=== PATIENT | female | born 1990 | race Caucasian/White ===

== ENCOUNTER 2022-06-20 14:27 | Inpatient (IN) | payer MEDICAID ==
[~2022-06-20] VITALS: Ht 152.4 cm; Wt 55.5 kg
[2022-06-20 15:26] LABS: BASOPHILS % (AUTO) 0.2 % (0.0-2.0); EOSINOPHILS % (AUTO) 0.2 % (1.0-6.0); HEMATOCRIT 40.2 % (36-46); HEMOGLOBIN 13.4 g/dL (12.0-16.0); LYMPHOCYTES # (AUTO) 0.7 K/uL (1.0-4.8); LYMPHOCYTES % (AUTO) 4.5 % (22.0-44.0); MEAN CORPUSCULAR HEMOGLOBIN 30.8 pg (26.0-34.0); MEAN CORPUSCULAR HGB CONC 33.3 G/dL (31.0-37.0); MEAN CORPUSCULAR VOLUME 92 fL (80-100); MONOCYTES # (AUTO) 0.7 K/uL (0.1-1.0); MONOCYTES % (AUTO) 4.1 % (2.0-9.0); NEUTROPHILS # (AUTO) 14.5 K/uL (1.8-7.7); PLATELET COUNT (AUTO) 287 K/uL (150-450); RED BLOOD CELL COUNT(AUTO) 4.35 MIL/uL (4.00-5.20); RED CELL DISTRIBUTION WIDTH 14.5 % (11.5-14.5)
[2022-06-20 15:39] LABS: ANION GAP 8 mmol/L (8-16); CALCIUM, TOTAL 9.3 mg/dL (8.8-10.5); CARBON DIOXIDE 24 mmol/L (22-29); CHLORIDE 102 mmol/L (98-107); CREATININE 0.71 mg/dL (0.60-1.30); GLOMERULAR FILTR. RATE CALC > 60 mL/min (>60); GLUCOSE,RANDOM 140 mg/dL (70-110); POTASSIUM 3.4 mmol/L (3.5-5.1); SODIUM SERUM 134 mmol/L (136-145); UREA NITROGEN, BLOOD 6 mg/dL (7-18)
[2022-06-20 15:51] LABS: ALANINE AMINOTRANSFERASE 30 U/L (12-78); ALBUMIN 3.6 g/dL (3.4-5.0); ALKALINE PHOSPHATASE 83 U/L (46-116); ASPARTATE AMINOTRANSFERASE 51 U/L (15-37); BILIRUBIN,TOTAL 0.5 mg/dL (0.1-1.0); HCG,QUANTITATIVE < 1 mIU/mL (0-6); TOTAL PROTEIN, SERUM 6.9 g/dL (6.4-8.2)
[2022-06-20 16:00] LABS: COVID AG,FIA SOURCE NASOPHARYNGEAL
[2022-06-20 16:11] LABS: SALICYLATE 1.7 mg/dL (2.8-20.0)
[2022-06-20] MEDS ORDERED: LORazepam 2 MG TABLET PO ONE (16:15)
[2022-06-20] MEDS ORDERED: SODIUM CHLORIDE 0.9% 1,000 ML IV ONE ×2 (16:15→17:30)
[2022-06-20 16:17] LABS: ACETAMINOPHEN < 2 mcg/mL (10-30)
[2022-06-20] MEDS ORDERED: GuaiFENesin/D-METHORPHAN [SUGAR-FREE] 200-20MG/10 ML SYRUP UDCUP PO PRN (17:00)
[2022-06-20] MEDS ORDERED: PROMETHAZINE HCL 25 MG TABLET PO PRN (17:00)
[2022-06-20] MEDS ORDERED: ZOLPIDEM TARTRATE 10 MG TABLET PO PRN (17:00)
[2022-06-20] MEDS ORDERED: MAGNESIUM HYDROXIDE SUSPENSION 30 ML UDCUP PO PRN (17:00)
[2022-06-20] MEDS ORDERED: OLANZapine 5 MG RAPDIS TABLET PO PRN (17:00)
[2022-06-20] MEDS ORDERED: MAG HYDROX/AL HYDROX/SIMETH ES 30 ML SUSPENSION UDCUP PO PRN (17:00)
[2022-06-20] MEDS ORDERED: LOPERAMIDE HCL 2 MG CAPSULE PO PRN (17:00)
[2022-06-20] MEDS ORDERED: TUBERCULIN, PURIFIED PROTEIN DERIVATIVE 5 TU/0.1 ML SYRINGE ID ONE (17:00)
[2022-06-20] MEDS ORDERED: LORazepam 2 MG TABLET PO PRN (17:00)
[2022-06-20] MEDS ORDERED: HydrOXYzine PAMOATE 50 MG CAPSULE PO PRN (17:00)
[2022-06-20] MEDS ORDERED: POTASSIUM CHLORIDE 20 MEQ ER TABLET PO ONE (17:15)
[2022-06-20] MEDS ORDERED: LORazepam 2 MG/ML VIAL IVP ONE ×2 (20:00)
[2022-06-20] MEDS ORDERED: OLANZapine 5 MG RAPDIS TABLET PO SCH (21:00)
[2022-06-21 02:42] VITALS: BP 133/75
[2022-06-21] MEDS ORDERED: POTASSIUM CHLORIDE 20 MEQ ER TABLET PO ONE (06:30)
[2022-06-21 07:51] LABS: HEMOGLOBIN A1C 5.1 % (3.8-5.6)
[2022-06-21 08:07] LABS: CHOL/HDL RATIO 2.5 (3.9-5.7); FREE T4 (FREE THYROXINE) 1.27 ng/dL (0.76-1.46); THYROID STIMULATING HORMONE 0.43 uIU/mL (0.36-3.74)
[2022-06-21 08:32] VITALS: BP 114/62
[2022-06-21] MEDS: MULTIVITAMINS WITH MINERALS, THERAPEUTIC TABLET PO SCH (09:40)
[2022-06-21] MEDS: FOLIC ACID 1 MG TABLET PO SCH (09:40)
[2022-06-21] MEDS: OMEGA-3/DHA/EPA/FISH OIL 1,000 MG CAPSULE PO SCH (09:41)
[2022-06-21] MEDS: FLUoxetine HCL 20 MG CAPSULE PO SCH (09:41)
[2022-06-21] MEDS: NALTREXONE HCL 50 MG TABLET PO SCH (09:42)
[2022-06-21] MEDS: THIAMINE 100 MG TABLET PO SCH ×2 (10:26→16:35)
[2022-06-21 13:17] VITALS: BP 116/64
[2022-06-21 13:49] VITALS: BP 130/70
[2022-06-21 16:07] VITALS: BP 120/80
[2022-06-21] MEDS: ACETAMINOPHEN 325 MG TABLET PO PRN (16:35)
[2022-06-21 16:36] VITALS: BP 104/66
[2022-06-21] MEDS: MELATONIN 5 MG TABLET PO SCH (20:33)
[2022-06-22 07:31] LABS: POTASSIUM 4.3 mmol/L (3.5-5.1)
[2022-06-22] MEDS: OMEGA-3/DHA/EPA/FISH OIL 1,000 MG CAPSULE PO SCH (09:15)
[2022-06-22] MEDS: FLUoxetine HCL 20 MG CAPSULE PO SCH (09:16)
[2022-06-22] MEDS: FOLIC ACID 1 MG TABLET PO SCH (09:16)
[2022-06-22] MEDS: THIAMINE 100 MG TABLET PO SCH ×2 (09:16→16:20)
[2022-06-22] MEDS: MULTIVITAMINS WITH MINERALS, THERAPEUTIC TABLET PO SCH (09:16)
[2022-06-22] MEDS: NALTREXONE HCL 50 MG TABLET PO SCH (09:16)
[2022-06-22 12:52] VITALS: BP 106/75
[2022-06-22] MEDS: ACETAMINOPHEN 325 MG TABLET PO PRN (14:24)
[2022-06-22] MEDS ORDERED: LURASIDONE HCL 20 MG TABLET PO PRN (14:45)
[2022-06-22 16:16] VITALS: BP 133/82
[2022-06-22] MEDS ORDERED: LURASIDONE HCL 40 MG TABLET PO SCH (17:00)
[2022-06-22] MEDS: MELATONIN 5 MG TABLET PO SCH (20:21)
[2022-06-23] MEDS: THIAMINE 100 MG TABLET PO SCH ×2 (08:17→16:15)
[2022-06-23] MEDS: FLUoxetine HCL 20 MG CAPSULE PO SCH (08:17)
[2022-06-23] MEDS: MULTIVITAMINS WITH MINERALS, THERAPEUTIC TABLET PO SCH (08:17)
[2022-06-23] MEDS: FOLIC ACID 1 MG TABLET PO SCH (08:17)
[2022-06-23] MEDS: OMEGA-3/DHA/EPA/FISH OIL 1,000 MG CAPSULE PO SCH (08:17)
[2022-06-23] MEDS: NALTREXONE HCL 50 MG TABLET PO SCH (08:17)
[2022-06-23 08:45] VITALS: BP 107/66
[2022-06-23 16:35] VITALS: BP 117/80
[2022-06-23] MEDS ORDERED: LURASIDONE HCL 60 MG TABLET PO SCH (17:00)
[2022-06-23] MEDS: MELATONIN 5 MG TABLET PO SCH (20:16)
[2022-06-24 02:09] VITALS: BP 108/76
[2022-06-24 08:39] VITALS: BP 100/73
[2022-06-24] MEDS: NALTREXONE HCL 50 MG TABLET PO SCH (09:00)
[2022-06-24] MEDS: OMEGA-3/DHA/EPA/FISH OIL 1,000 MG CAPSULE PO SCH (09:00)
[2022-06-24] MEDS: FLUoxetine HCL 20 MG CAPSULE PO SCH (09:00)
[2022-06-24] MEDS: THIAMINE 100 MG TABLET PO SCH ×2 (09:00→16:16)
[2022-06-24] MEDS: FOLIC ACID 1 MG TABLET PO SCH (09:00)
[2022-06-24] MEDS: MULTIVITAMINS WITH MINERALS, THERAPEUTIC TABLET PO SCH (09:00)
[2022-06-24 10:56] VITALS: BP 100/73
[2022-06-24 16:04] VITALS: BP 130/82
[2022-06-24 16:08] VITALS: BP 120/80
[2022-06-24] MEDS: LURASIDONE HCL 80 MG TABLET PO SCH (16:16)
[2022-06-24] MEDS: MELATONIN 5 MG TABLET PO SCH (20:10)
[2022-06-24 21:02] VITALS: BP 130/82
[2022-06-25 06:58] LABS: BASOPHILS % (AUTO) 0.6 % (0.0-2.0); EOSINOPHILS % (AUTO) 2.3 % (1.0-6.0); HEMOGLOBIN 14.1 g/dL (12.0-16.0); LYMPHOCYTES # (AUTO) 2.4 K/uL (1.0-4.8); LYMPHOCYTES % (AUTO) 28.8 % (22.0-44.0); MEAN CORPUSCULAR HEMOGLOBIN 30.8 pg (26.0-34.0); MEAN CORPUSCULAR HGB CONC 33.5 G/dL (31.0-37.0); MEAN CORPUSCULAR VOLUME 92 fL (80-100); MONOCYTES # (AUTO) 0.6 K/uL (0.1-1.0); MONOCYTES % (AUTO) 7.1 % (2.0-9.0); NEUTROPHILS # (AUTO) 5.2 K/uL (1.8-7.7); NEUTROPHILS % (AUTO) 61.2 % (40.0-70.0); PLATELET COUNT (AUTO) 382 K/uL (150-450); RED BLOOD CELL COUNT(AUTO) 4.57 MIL/uL (4.00-5.20); RED CELL DISTRIBUTION WIDTH 14.2 % (11.5-14.5)
[2022-06-25 07:18] LABS: ALANINE AMINOTRANSFERASE 71 U/L (12-78); ALKALINE PHOSPHATASE 97 U/L (46-116); ANION GAP 8 mmol/L (8-16); ASPARTATE AMINOTRANSFERASE 37 U/L (15-37); BILIRUBIN,TOTAL 0.3 mg/dL (0.1-1.0); CALCIUM, TOTAL 8.9 mg/dL (8.8-10.5); CARBON DIOXIDE 28 mmol/L (22-29); CHLORIDE 102 mmol/L (98-107); CREATININE 0.62 mg/dL (0.60-1.30); GLUCOSE,RANDOM 90 mg/dL (70-110); PHOSPHORUS 3.3 mg/dL (2.5-4.9); POTASSIUM 4.1 mmol/L (3.5-5.1); SODIUM SERUM 138 mmol/L (136-145); TOTAL PROTEIN, SERUM 7.8 g/dL (6.4-8.2); UREA NITROGEN, BLOOD 6 mg/dL (7-18)
[2022-06-25 07:23] LABS: GLOMERULAR FILTR. RATE CALC > 60 mL/min (>60)
[2022-06-25] MEDS: THIAMINE 100 MG TABLET PO SCH ×2 (08:30→16:33)
[2022-06-25] MEDS: MULTIVITAMINS WITH MINERALS, THERAPEUTIC TABLET PO SCH (08:30)
[2022-06-25] MEDS: NALTREXONE HCL 50 MG TABLET PO SCH (08:30)
[2022-06-25] MEDS: FLUoxetine HCL 20 MG CAPSULE PO SCH (08:30)
[2022-06-25] MEDS: FOLIC ACID 1 MG TABLET PO SCH (08:30)
[2022-06-25] MEDS: OMEGA-3/DHA/EPA/FISH OIL 1,000 MG CAPSULE PO SCH (08:30)
[2022-06-25 08:31] VITALS: BP 127/79
[2022-06-25 12:39] VITALS: BP 127/79
[2022-06-25 16:23] VITALS: BP 99/71
[2022-06-25] MEDS: LURASIDONE HCL 80 MG TABLET PO SCH (16:33)
[2022-06-25 18:56] LABS: GLUCOMETER DEV NAME(LOC) POC.BV
[2022-06-25] MEDS: MELATONIN 5 MG TABLET PO SCH (20:40)
[2022-06-26] MEDS: FLUoxetine HCL 20 MG CAPSULE PO SCH (09:18)
[2022-06-26] MEDS: THIAMINE 100 MG TABLET PO SCH ×2 (09:18→17:01)
[2022-06-26] MEDS: OMEGA-3/DHA/EPA/FISH OIL 1,000 MG CAPSULE PO SCH (09:18)
[2022-06-26] MEDS: FOLIC ACID 1 MG TABLET PO SCH (09:18)
[2022-06-26] MEDS: MULTIVITAMINS WITH MINERALS, THERAPEUTIC TABLET PO SCH (09:18)
[2022-06-26] MEDS: NALTREXONE HCL 50 MG TABLET PO SCH (09:24)
[2022-06-26 10:02] VITALS: BP 119/86
[2022-06-26] MEDS: LURASIDONE HCL 80 MG TABLET PO SCH (17:01)
[2022-06-26 20:27] VITALS: BP 113/71
[2022-06-26] MEDS: MELATONIN 5 MG TABLET PO SCH (20:56)
[2022-06-27 08:52] VITALS: BP 127/80
[2022-06-27] MEDS: FLUoxetine HCL 20 MG CAPSULE PO SCH (09:02)
[2022-06-27] MEDS: THIAMINE 100 MG TABLET PO SCH ×2 (09:03→16:54)
[2022-06-27] MEDS: MULTIVITAMINS WITH MINERALS, THERAPEUTIC TABLET PO SCH (09:03)
[2022-06-27] MEDS: OMEGA-3/DHA/EPA/FISH OIL 1,000 MG CAPSULE PO SCH (09:03)
[2022-06-27] MEDS: FOLIC ACID 1 MG TABLET PO SCH (09:03)
[2022-06-27] MEDS: NALTREXONE HCL 50 MG TABLET PO SCH (09:03)
[2022-06-27] MEDS: LURASIDONE HCL 80 MG TABLET PO SCH (16:58)
[2022-06-27 20:47] VITALS: BP 106/77
[2022-06-27] MEDS: MELATONIN 5 MG TABLET PO SCH (21:02)
[2022-06-28] MEDS: FLUoxetine HCL 20 MG CAPSULE PO SCH (09:23)
[2022-06-28] MEDS: OMEGA-3/DHA/EPA/FISH OIL 1,000 MG CAPSULE PO SCH (09:24)
[2022-06-28] MEDS: NALTREXONE HCL 50 MG TABLET PO SCH (09:24)
[2022-06-28] MEDS: THIAMINE 100 MG TABLET PO SCH (09:24)
[2022-06-28] MEDS: FOLIC ACID 1 MG TABLET PO SCH (09:24)
[2022-06-28] MEDS: MULTIVITAMINS WITH MINERALS, THERAPEUTIC TABLET PO SCH (09:24)
[2022-06-28 09:25] VITALS: BP 112/75
[2022-06-28] MEDS ORDERED: NALT50TA PO (10:12)
[2022-06-28] MEDS ORDERED: MELA5TAB40 PO (10:12)
[2022-06-28] MEDS ORDERED: OMEG-135 PO (10:12)
[2022-06-28] MEDS ORDERED: LURA80TA2 PO (10:12)
[2022-06-28] MEDS ORDERED: PROZ20 PO (10:12)
== END 2022-06-28 13:05 | disposition home or self-care (01) | DRG 750 ==
LOC: EMS 14:30 → B2S 06-21 00:25
PROVIDERS: ADMIT Psychiatry & Neurology Psychiatry; ATTEND Psychiatry & Neurology Psychiatry
DX: F25.9 Schizoaffective disorder, unspecified (principal); R45.851 Suicidal ideations; F15.90 Other stimulant use, unspecified, uncomplicated; F17.210 Nicotine dependence, cigarettes, uncomplicated; F41.9 Anxiety disorder, unspecified; G47.00 Insomnia, unspecified; E87.6 Hypokalemia; R73.9 Hyperglycemia, unspecified; K59.00 Constipation, unspecified; D72.829 Elevated white blood cell count, unspecified; Z20.822 Contact with and (suspected) exposure to COVID-19; Z91.51 Personal history of suicidal behavior; Z59.9 Problem related to housing and economic circumstances, unspecified
CPT/HCPCS: 80053; 80061; 83036; 83735; 84100; 84132; 84295; 84439; 84443; 84702; 85025; 86592; 93005; 99291; G0480; G0481; J2060; J7030; Q9967